=== PATIENT | female | born 1950 | race Caucasian/White ===

== ENCOUNTER 2017-10-08 11:56 | Outpatient (CLI) | payer MEDICARE, OTHER | END 2017-10-08 11:57 | disposition home or self-care (01) | LOC: BICMAMMO 11:56 | PROVIDERS: ATTEND Family Medicine | DX: Z12.31 Encounter for screening mammogram for malignant neoplasm of breast (principal) | CPT/HCPCS: 77063; 77067 ==

== ENCOUNTER 2019-02-11 15:21 | Outpatient (CLI) | payer MEDICARE, OTHER ==
--- NOTE | 2019-02-11 16:05 | MMO ---
Bilateral MAMMO Bilat Screen [facility]. CLINICAL HISTORY: Patient is 68 years old and is seen for screening. The patient has no family history of breast cancer. The patient has no personal history of cancer. VIEWS: The views performed were: bilateral craniocaudal with tomosynthesis and bilateral mediolateral oblique with tomosynthesis. FILMS COMPARED: The present examination has been compared to prior imaging studies performed at [facility] on 09/21/2014, 10/05/2015, 10/07/2016 and 10/08/2017. This study has been interpreted with the assistance of computer-aided detection. MAMMOGRAM FINDINGS: There are scattered fibroglandular densities. There are stable benign appearing calcifications seen in both breasts. There are also vascular calcifications. There are no suspicious masses, suspicious calcifications, or new areas of architectural distortion. IMPRESSION: THERE IS NO MAMMOGRAPHIC EVIDENCE OF MALIGNANCY. A ROUTINE FOLLOW-UP MAMMOGRAM IN 1 YEAR IS RECOMMENDED. THE RESULTS OF THIS EXAM WERE SENT TO THE PATIENT. ACR BI-RADS Category 2 - Benign finding MAMMOGRAPHY NOTE: 1. A negative mammogram report should not delay a biopsy if a dominant of clinically suspicious mass is present. 2. Approximately 10% to 15% of breast cancers are not detected by mammography. 3. Adenosis and dense breasts may obscure an underlying neoplasm. Reported by: SHAHAB OCONNELL MD Electonically Signed: [id number]
== END 2019-02-11 15:22 | disposition home or self-care (01) ==
LOC: BICMAMMO 15:21
PROVIDERS: ATTEND Family Medicine
DX: Z12.31 Encounter for screening mammogram for malignant neoplasm of breast (principal)
CPT/HCPCS: 77063; 77067

== ENCOUNTER 2021-03-12 12:38 | Outpatient (CLI) | payer MEDICARE, BC | END 2021-03-12 12:39 | disposition home or self-care (01) | LOC: SCSRAD 12:38 | PROVIDERS: ATTEND Family Medicine | DX: R05.9 Cough, unspecified (principal) | CPT/HCPCS: 71046 ==

== ENCOUNTER 2021-04-17 07:59 | Outpatient (CLI) | payer MEDICARE, BC | END 2021-04-17 08:00 | disposition home or self-care (01) | LOC: RAD 07:59 | PROVIDERS: ATTEND Internal Medicine Critical Care Medicine | DX: R06.00 Dyspnea, unspecified (principal) | CPT/HCPCS: 71046 ==

== ENCOUNTER 2021-10-30 14:19 | Outpatient (CLI) | payer MEDICARE, BC | END 2021-10-30 14:20 | disposition home or self-care (01) | LOC: LABBT 14:19 | PROVIDERS: ATTEND Family Medicine | DX: Z20.822 Contact with and (suspected) exposure to COVID-19 (principal) | CPT/HCPCS: 87811 ==

== ENCOUNTER 2021-11-27 13:23 | Outpatient (CLI) | payer MEDICARE, BC | END 2021-11-27 13:24 | disposition home or self-care (01) | LOC: LABBT 13:23 | PROVIDERS: ATTEND Physician Assistant | DX: K21.9 Gastro-esophageal reflux disease without esophagitis (principal); R13.14 Dysphagia, pharyngoesophageal phase; Z20.822 Contact with and (suspected) exposure to COVID-19 | CPT/HCPCS: 87811 ==

== ENCOUNTER 2021-11-29 13:05 | Outpatient (CLI) | payer MEDICARE, BC | END 2021-11-29 13:06 | disposition home or self-care (01) | LOC: RAD 13:05 | PROVIDERS: ATTEND Physician Assistant | DX: I69.191 Dysphagia following nontraumatic intracerebral hemorrhage (principal); R13.14 Dysphagia, pharyngoesophageal phase; K21.9 Gastro-esophageal reflux disease without esophagitis | CPT/HCPCS: 74230 ==

== ENCOUNTER 2023-01-16 11:02 | Outpatient (CLI) | payer MEDICARE, BC | END 2023-01-16 11:03 | disposition home or self-care (01) | LOC: RAD 11:02 | PROVIDERS: ATTEND Internal Medicine Critical Care Medicine | DX: R06.00 Dyspnea, unspecified (principal); Q79.1 Other congenital malformations of diaphragm | CPT/HCPCS: 71046 ==

== ENCOUNTER 2023-05-26 15:09 | Outpatient (CLI) | payer MEDICARE, BC | END 2023-05-26 15:10 | disposition home or self-care (01) | LOC: RAD 15:09 | PROVIDERS: ATTEND Internal Medicine Critical Care Medicine | DX: R06.00 Dyspnea, unspecified (principal); R91.8 Other nonspecific abnormal finding of lung field | CPT/HCPCS: 71046 ==

== ENCOUNTER 2024-03-09 09:37 | Outpatient (CLI) | payer MEDICARE, BC | END 2024-03-09 09:38 | disposition home or self-care (01) | LOC: RAD 09:37 | PROVIDERS: ATTEND Internal Medicine Critical Care Medicine | DX: R06.00 Dyspnea, unspecified (principal) | CPT/HCPCS: 71046 ==

== ENCOUNTER 2024-11-02 14:32 | Outpatient (CLI) | payer MEDICARE, BC | END 2024-11-02 14:33 | disposition home or self-care (01) | LOC: RAD 14:32 | PROVIDERS: ATTEND Internal Medicine | DX: R06.00 Dyspnea, unspecified (principal) | CPT/HCPCS: 71046 ==

== ENCOUNTER 2025-03-03 13:02 | Outpatient (CLI) | payer MEDICARE, BC | END 2025-03-03 13:03 | disposition home or self-care (01) | LOC: RAD 13:02 | PROVIDERS: ATTEND Internal Medicine Critical Care Medicine | DX: R06.00 Dyspnea, unspecified (principal) | CPT/HCPCS: 71046 ==